=== PATIENT | male | born 1970 | race Caucasian/White ===

== ENCOUNTER 2023-10-31 03:37 | Inpatient (IN) ==
[2023-10-31 05:16] LABS: Albumin Globulin Ratio 0.6 (0.9-2); Albumin Level 2.7 gm/dl (3.4-5.0); BUN Creatinine Ratio 10.6 (10-20); Basophils # (auto) 0.09 K/uL (0.00-0.20); Basophils % (auto) 1.8 %; Bilirubin,Total 6.4 mg/dl (0.2-1.0); Calcium 8.1 mg/dl (8.6-10.3); Creatinine Clr Calc Pharmacy 214.3 ml/min; Eosinophils # (auto) 0.07 K/uL (0.00-0.50); Eosinophils % (auto) 1.4 %; Est GFR (African American) 146.1 ml/min; Globulin 4.9 gm/dl (2.5-4.0); Hematocrit (blood only) 33.6 % (42.0-52.0); Hemoglobin 11.3 g/dl (14.0-18.0); Immature Granulocytes # (auto) 0.02 K/uL (0.01-0.20); Immature Granulocytes % (auto) 0.4 %; Lymphocytes # (auto) 1.09 K/uL (1.20-3.40); Lymphocytes % (auto) 21.5 %; Mean Corpuscular Hemoglobin 33.7 pg (25.0-34.0); Mean Corpuscular Hgb Conc 33.6 g/dL (32.0-36.0); Mean Corpuscular Volume 100.3 fL (80.0-100.0); Mean Platelet Volume 9.5 fL (9.4-12.4); Monocytes # (auto) 0.87 K/uL (0.11-0.59); Monocytes % (auto) 17.1 %; Neutrophils # (auto) 2.94 K/uL (1.40-6.50); Neutrophils % (auto) 57.8 %; Platelet Count 92 K/uL (130-400); Potassium 3.4 mmol/L (3.5-5.1); RDW Coefficient of Variation 15.6 % (11.5-14.5); RDW Standard Deviation 57.8 fL (36.4-46.3); Red Blood Count 3.35 M/uL (4.70-6.10); Total Protein 7.6 gm/dl (6.0-8.3); White Blood Count 5.08 K/ul (4.8-10.8)
[2023-10-31 05:22] LABS: Troponin I High Sensitivity 28.3 pg/ml (0-20)
[2023-10-31] MEDS ORDERED: SODIUM CHLORIDE 0.9% 500 ML IV ONE (05:24)
--- NOTE | 2023-10-31 05:53 | Emergency Department Note ---
Impression & Plan Elevated troponin, Left-sided chest pain, Acute hyponatremia, Thrombocytopenia Admit to the [facility] ED Provider Note NAME: MICHEAL DAN AGE: 52 SEX: Male INFORMANT: Patient ED PROVIDER(S): Galilea Carey DO CHIEF COMPLAINT: Left-sided chest pain and left arm pain PLAN: Disposition: Admit to the [facility] MEDICAL DECISION MAKING: This is a 52-year-old male patient who presents to the emergency department complaining of left-sided chest pain and left arm discomfort. The patient had worked more than 15 hours today and was unable to sleep tonight because he could feel his heartbeat. He then developed a left-sided chest discomfort that radiated to his left arm which prompted him to come to the emergency department. Patient does have a long history of alcohol abuse. In fact, he was seen here in the hospital a couple months ago and diagnosed with alcoholic hepatitis and pancytopenia but refused admission and signed out AMA. Today, the patient has an elevated troponin with a normal-appearing EKG. Alcohol level is 22.7 and he has a resting tremor and appears to possibly be suffering some alcohol withdrawal. Other laboratory studies reveal thrombocytopenia with a platelet count of 92. Anemia with a hemoglobin of 11.3. Sodium is low at 132. Potassium is low at 3.4. Renal function is normal. Total bilirubin is significantly elevated at 6.4. AST is 79. I reviewed all these findings with the patient and his . The patient is willing to stay for admission to the hospital for further inpatient medical care. 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 Triage Nursing notes: Reviewed and agree with them. Vital Signs: reviewed and remarkable for hypertension Additional History obtained from: The patient's is at the bedside Chronic Medical/Social Conditions affecting care: Alcoholism Differential Diagnosis: STEMI, NSTEMI, GERD, aortic dissection, hepatitis, cirrhosis, alcoholism Diagnostics, independently interpreted by me: ECG: Sinus tachycardia at [address] segment elevation or signs of ischemia. There is no ectopy. QTc was 482 ms Cardiac Monitoring: Sinus tachycardia at 102 Imaging studies: Cardiomegaly with no acute pulmonary infiltrates or pleural effusions as per my independent interpretation HPI: 52 year old Male arrives for evaluation of left-sided chest discomfort and left arm pain. Patient explains that he works 15 hours today and felt as if he could not sleep tonight. He could feel his heartbeat in his chest and then developed some left-sided chest discomfort and left arm pain. Patient then began to notice some pressure into the left side of his neck PAST MEDICAL HISTORY: Alcohol abuse, previously diagnosed problem with his liver when he was seen here in the fall SOCIAL HISTORY: Works for a [employer], drinks alcohol regularly HOME MEDICATIONS: None ALLERGIES: None VITALS: See Below PHYSICAL EXAMINATION: HEENT: Head - normocephalic and atraumatic. Pupils are equal, round, and reactive to light. Extraocular eye muscles are intact, and sclera are icteric. Nose - moist nasal mucosa without discharge. Mouth - moist buccal mucosa. Oropharynx is nonerythematous and there is no tonsillar exudate or edema noted. Neck: Supple; no JVD, nuchal rigidity, cervical lymphadenopathy, or auscultated bruits. Heart: Tachycardic rate and regular rhythm there is a normal S1 and S2 with no murmurs, clicks, or gallops appreciated. Lungs: Clear to auscultation bilaterally with no wheezes, rales, or rhonchi. Abdomen: Soft, completely nontender, nondistended, with good bowel sounds. There are no palpable pulsatile masses or hepatosplenomegaly. There is no guarding, rigidity, or rebound noted. Extremities: No evidence of cyanosis, clubbing, or edema. There are easily palpable peripheral pulses. Skin: warm and dry with good turgor and no rashes. Neuro: The patient has an obvious resting tremor that is worse with intention. Emergency department course: The patient was evaluated in room A-10. Complete history and physical was performed. A twelve-lead EKG was obtained as described above. An order was placed for continuous cardiac monitoring. The patient was in a sinus tachycardia at a rate of 102. Laboratory studies were drawn as above. I reviewed the results with the patient and his and he is agreeable for admission to the hospital. Past Med/Surg History Social History Smoking Status: Unknown if ever smoked Hx Alcohol Use: Yes Preferred Language: Slovak Communication Ability: Effective Dye Maker Required: No Current Living Situation: Spouse Feels Safe at Home: Yes Allergies Allergies Allergy/AdvReac Type Severity Reaction Status Date / Time No Known Allergies Allergy Unverified 08/02/23 13:36 Home Meds Home Medications Medication Instructions Recorded Confirmed No Known Home Medications 08/02/23 10/31/23 Results & Data (ED) Vital Signs Vital Signs - 24 hr 10/31/23 03:41 10/31/23 03:56 10/31/23 06:17 Temperature 37.3 C Temperature Source Temporal Artery Scan Pulse Rate 110 H 102 H Pulse Rate [Finger] 104 H Respiratory Rate 18 18 Respiratory Effort / Characteristics Non-Labored Spontaneous Non-Labored Respiratory Depth Normal Normal Blood Pressure 155/86 H Blood Pressure [Right Arm] 159/94 H Blood Pressure Mean 109 Blood Pressure Mean [Right Arm] 115 Pulse Oximetry 95 Oxygen Delivery Method Room Air Sepsis Recent Fever Within 48 Hours No Sepsis New/Unexplained Change in Mental Status No Sepsis Action Taken by Nursing No Action Required Laboratory Data 10/31/23 03:56 10/31/23 03:56 Lab Results 10/31/23 10/31/23 Range/Units 03:56 07:22 WBC 5.08 (4.8-10.8) K/ul RBC 3.35 L (4.70-6.10) M/uL Hgb 11.3 L (14.0-18.0) g/dl Hct 33.6 L (42.0-52.0) % MCV 100.3 H (80.0-100.0) fL MCH 33.7 (25.0-34.0) pg MCHC 33.6 (32.0-36.0) g/dL RDW Std Deviation 57.8 H (36.4-46.3) fL RDW Coeff of Lorie 15.6 H (11.5-14.5) % Plt Count 92 L (130-400) K/uL MPV 9.5 (9.4-12.4) fL Immature Gran % (Auto) 0.4 % Neut % (Auto) 57.8 % Lymph % (Auto) 21.5 % [place] % (Auto) 17.1 % Eos % (Auto) 1.4 % Baso % (Auto) 1.8 % Reticulocyte % (Auto) 1.91 (0.50-2.00) % Neut # (Auto) 2.94 (1.40-6.50) K/uL Lymph # (Auto) 1.09 L (1.20-3.40) K/uL [place] # (Auto) 0.87 H (0.11-0.59) K/uL Eos # (Auto) 0.07 (0.00-0.50) K/uL Baso # (Auto) 0.09 (0.00-0.20) K/uL Reticulocyte # 0.060 (0.020-0.100) 10^6/uL Immature Gran # (Auto) 0.02 (0.01-0.20) K/uL PT 16.2 H (9.0-12.0) Seconds INR 1.5 H (0.9-1.1) APTT 35 H (21-31) Seconds PTT Ratio 1.2 Sodium 132 L (136-145) mmol/L Potassium 3.4 L (3.5-5.1) mmol/L Chloride 100 (98-107) mmol/L Carbon Dioxide 23 (21-32) mmol/L Anion Gap 9 (3-11) BUN 5 L (6-23) mg/dl Creatinine 0.47 L (0.6-1.4) mg/dl Est Cr Clr Drug Dosing 214.3 ml/min Est GFR ( Amer) 146.1 ml/min Est GFR (Non-Af Amer) 126.0 ml/min BUN/Creatinine Ratio 10.6 (10-20) Glucose 110 H (70-99(Fasting)) mg/dl Estimat Average Glucose 71 mg/dl Hemoglobin A1c 4.1 L (4.5-5.6) % Osmolality 286 (280-300) mOsm/kg Calcium 8.1 L (8.6-10.3) mg/dl Magnesium 1.5 L (1.7-2.4) mg/dl Iron 194 H (35-175) mcg/dl Transferrin 166 L (200-360) mg/dl Ferritin 99.5 (8-388) ng/ml Total Bilirubin 6.4 H (0.2-1.0) mg/dl AST 79 H (13-39) U/L ALT 28 (7-52) U/L Alkaline Phosphatase 132 H (34-104) U/L Troponin I High Sens 28.3 H 28.8 H (0-20) pg/ml Total Protein 7.6 (6.0-8.3) gm/dl Albumin 2.7 L (3.4-5.0) gm/dl Globulin 4.9 H (2.5-4.0) gm/dl Albumin/Globulin Ratio 0.6 L (0.9-2) Triglycerides 106 (0-150) mg/dl Cholesterol TNP LDL Cholesterol, Calc TNP VLDL Cholesterol, Calc 21 (0-30) mg/dl HDL Cholesterol 27 mg/dl Cholesterol/HDL Ratio TNP Lipase 43 (11-82) U/L Vitamin B12 1045 H (180-914) pg/ml Folate 9.68 (>5.38) ng/ml TSH 2.471 (0.300-4.500) uIu/ml Ethyl Alcohol mg/dL 22.7 H (<10.0) mg/dl Miscellaneous Test Cancelled Miscellaneous Test 2 Cancelled Administered Medications Folic Acid (Folic Acid 1 Mg Tab) 1 mg PO [facility] Stop: 11/30/23 08:59 Last Admin: 10/31/23 12:02 Dose: 1 mg Documented By: SOULEYMANE Insulin Aspart (Insulin Aspart Per Unit Charge) 0 units SC [facility] Stop: 11/30/23 09:52 Last Admin: 10/31/23 20:51 Dose: Not Given Documented By: Admin: 10/31/23 18:03 Dose: Not Given Documented By: Admin: 10/31/23 12:16 Dose: Not Given Documented By: Admin: 10/31/23 12:15 Dose: Not Given Documented By: SOULEYMANE Multivitamins (Multivitamin Tab) 1 tab PO [facility] Stop: 11/30/23 08:59 Last Admin: 10/31/23 12:01 Dose: 1 tab Documented By: SOULEYMANE Discontinued Medications Aspirin (Aspirin 81 Mg Ectab) 81 mg PO NOW [facility] Stop: 10/31/23 07:26 Last Admin: 10/31/23 07:40 Dose: 81 mg Documented By: DIANNE Gabapentin (Gabapentin 600 Mg Tab) 1,200 mg PO NOW STA Stop: 10/31/23 07:26 Last Admin: 10/31/23 07:40 Dose: 1,200 mg Documented By: DIANNE Gabapentin (Gabapentin 600 Mg Tab) 600 mg PO Q6H [facility] Stop: 10/31/23 19:46 Last Admin: 10/31/23 20:33 Dose: 600 mg Documented By: Admin: 10/31/23 13:51 Dose: 600 mg Documented By: SOULEYMANE Sodium Chloride (Nss) 500 mls @ 999 mls/hr IV .Q31M ONE Stop: 10/31/23 05:54 Last Infusion: 10/31/23 06:52 Dose: Infused Documented By: Admin: 10/31/23 06:11 Dose: 999 mls/hr Documented By: RUPINDER Thiamine HCl 100 mg/ Syringe 10 mls @ 2 mls/min IV NOW STA Stop: 10/31/23 06:25 Last Admin: 10/31/23 07:29 Dose: 2 mls/min Documented By: DIANNE Magnesium Sulfate/Dextrose (Magnesium Sulfate / D5w) 1 gm in 100 mls @ 50 mls/hr IV Q2H [facility] Stop: 10/31/23 11:44 Last Infusion: 10/31/23 16:45 Dose: Infused Documented By: Admin: 10/31/23 12:01 Dose: 50 mls/hr Documented By: Infusion: 10/31/23 12:01 Dose: Infused Documented By: Admin: 10/31/23 10:27 Dose: 50 mls/hr Documented By: SOULEYMANE Lorazepam (Lorazepam 1 Mg/1 Ml Syr Ed Inj Use) 1 mg IV NOW STA Stop: 10/31/23 07:32 Last Admin: 10/31/23 07:40 Dose: 1 mg Documented By: DIANNE Losartan Potassium (Losartan Potassium 25 Mg Tab) 25 mg PO NOW STA Stop: 10/31/23 07:34 Last Admin: 10/31/23 10:28 Dose: 25 mg Documented By: SOULEYMANE Losartan Potassium (Losartan Potassium 25 Mg Tab) 25 mg PO NOW STA Stop: 10/31/23 19:21 Last Admin: 10/31/23 19:43 Dose: 25 mg Documented By: JOHN Nitroglycerin (Nitroglycerin Sl 0.4 Mg/Tab Tab) 0.4 mg SL NOW STA Stop: 10/31/23 07:25 Last Admin: 10/31/23 07:28 Dose: 0.4 mg Documented By: DIANNE Potassium Chloride (Potassium Chloride Crtab 20 Meq Tabcr) 40 meq PO NOW STA Stop: 10/31/23 06:22 Last Admin: 10/31/23 06:35 Dose: 40 meq Documented By: Discharge Plan Visit Data Chief Complaint: TIA Symptoms Stated Complaint: CHEST PAIN, LEFT SIDE NUMB ED Provider: Galilea Carey Discharge Problem: Elevated troponin, Left-sided chest pain, Acute hyponatremia, Thrombocytopenia Patient Disposition: Admitted As Inpatient Discharge Instructions Interventions: ED Discharge Assessment Last Done: 10/31/23 07:57
[2023-10-31] MEDS ORDERED: POTASSIUM CHLORIDE CRTAB 20 MEQ TABCR PO STA (06:21)
[2023-10-31] MEDS ORDERED: THIAMINE HCL 100 MG in SYRINGE 9 ML IV STA (06:21)
--- NOTE | 2023-10-31 06:43 | History & Physical Report ---
Date of Service October 31, 2023 Assessment & Plan (1) Chest pain: Plan: Chest pain radiating to the left upper extremity With troponin elevation Possible ACS given patient risk factors for ischemic heart disease hypertension, elevated, patient off old Hyzaar Rx since 2019 following previous PCP advice as per patient hyperlipidemia, off prior Crestor Rx DM 2 diet-controlled, unknown control, off prior Metformin Rx Chronic hyponatremia possibly from cirrhosis/alcohol abuse cirrhosis likely secondary to alcohol abuse chronic anemia, chronic thrombocytopenia, coagulopathy secondary to cirrhosis Alcoholic hepatitis, poor prognosis with computed Maddrey's DF score of 32.6 points Hypokalemia, hypomagnesemia alcohol abuse, patient currently exhibiting signs of alcohol withdrawal with note of rest tremors past tobacco abuse PCU Aspirin for CAD prevention until ACS ruled out Nitro trial Follow troponin, initiate beta-yolanda and IV heparin if with next draw with significant elevation Restart home losartan Rx for BP control TTE, Cardiology consult Re: Chest pain with troponin elevation N.p.o. until patient seen by cardiology in anticipation of ischemic workup Update lipid profile and hemoglobin A1c Hyponatremia workup Anemia workup GI consult re: alcoholic hepatitis, cirrhosis workup RICHARD S, DT precautions Replace electrolytes ISS BG goal 1 10-1 40 DVT prophylaxis. SCDs if patient not to be started on IV heparin given thrombocytopenia Full code Patient requesting updates from providers. Ms. Candace Yates, contact #[phone]. Text document was generated using [employer] voice recognition software. It may contain grammatical or spelling errors. Kindly contact undersigned for clarification of any documentation item in question. History of Present Illness Chief Complaint: Chest pain Primary Care Provider: Dr. He (Patient has not met him.) History obtained from patient, family, and records. Medical history significant for hypertension, hyperlipidemia, DM 2 diet- controlled, cirrhosis, chronic anemia, chronic thrombocytopenia, alcohol abuse, past tobacco abuse. Patient claims he was told told by previous [facility] PCP in 2019 that he "could stop blood pressure, cholesterol and DM meds because he did not need them after losing significant weight." Last [facility] ER visit July 2023 abdominal distention and bilateral leg swelling attributed to CHF. Patient noted to be anemic, thrombocytopenic, and hyponatremic on blood work. Cirrhosis and portal hypertension noted on abdominal imaging. Patient declined admission. Jose G Paniagua PCP's office later recommended outpatient Hepatology evaluation. Patient scheduled to see specialist January 2024. Abdominal distention and leg swelling improved at home without medications as per patient. Patient experienced achy substernal pain at home yesterday while at rest going to the left arm. Some shortness of breath. Nonpruritic, no cough symptoms. May have had a transient episode last month. No headache, no unusual abdominal pain. Denies overt bleeding symptoms. Worsening discomfort few hours ago at work. Patient brought to ER by . 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 Allergies Allergy/AdvReac Type Severity Reaction Status Date / Time No Known Allergies Allergy Unverified 08/02/23 13:36 Home Medications Medication Instructions Recorded Confirmed Type No Known Home Medications 08/02/23 10/31/23 History Past Med/Surg History Social History Smoking Status: Unknown if ever smoked Hx Alcohol Use: Yes Preferred Language: Khmer Communication Ability: Effective [place] [employer] Required: No Current Living Situation: Spouse Feels Safe at Home: Yes Review of Systems Review of Systems: As per HPI, all other systems reviewed and negative Physical Exam Physical Exam: GENERAL: Slightly uncomfortable, tremulous, obese, no respiratory distress SKIN: Pallor, warm HEENT: Pale palpebral conjunctivae, no ptosis, dry buccal mucosa NECK : Supple, no tenderness CHEST : CTA, no tenderness HEART : Tachycardic, no obvious murmurs ABDOMEN: Some distention, nontender RECTAL : Intact sphincter, brown stool (FOBT negative) EXTREMITIES : Minimal LE swelling, no LE tenderness, no other conspicuous deformities noted NEUROLOGIC : Coherent, no facial asymmetry, tremulous, no other gross focality Results & Data Results & Data Vital Signs (Past 12 Hours) Vital Signs Temp Pulse Pulse Resp BP BP Pulse Ox 10/31/23 06:17 104 H 18 159/94 H 10/31/23 03:56 102 H 10/31/23 03:41 37.3 C 110 H 18 155/86 H 95 O2 Del Method 10/31/23 06:17 10/31/23 03:56 10/31/23 03:41 Room Air Laboratory Results Laboratory Results WBC 5.08 K/ul (4.8-10.8) 10/31/23 03:56 RBC 3.35 M/uL (4.70-6.10) L 10/31/23 03:56 Hgb 11.3 g/dl (14.0-18.0) L 10/31/23 03:56 Hct 33.6 % (42.0-52.0) L 10/31/23 03:56 MCV 100.3 fL (80.0-100.0) H 10/31/23 03:56 MCH 33.7 pg (25.0-34.0) 10/31/23 03:56 MCHC 33.6 g/dL (32.0-36.0) 10/31/23 03:56 RDW Std Deviation 57.8 fL (36.4-46.3) H 10/31/23 03:56 RDW Coeff of Lorie 15.6 % (11.5-14.5) H 10/31/23 03:56 Plt Count 92 K/uL (130-400) L 10/31/23 03:56 MPV 9.5 fL (9.4-12.4) 10/31/23 03:56 Immature Gran % (Auto) 0.4 % 10/31/23 03:56 Neut % (Auto) 57.8 % 10/31/23 03:56 Lymph % (Auto) 21.5 % 10/31/23 03:56 [place] % (Auto) 17.1 % 10/31/23 03:56 Eos % (Auto) 1.4 % 10/31/23 03:56 Baso % (Auto) 1.8 % 10/31/23 03:56 Neut # (Auto) 2.94 K/uL (1.40-6.50) 10/31/23 03:56 Lymph # (Auto) 1.09 K/uL (1.20-3.40) L 10/31/23 03:56 [place] # (Auto) 0.87 K/uL (0.11-0.59) H 10/31/23 03:56 Eos # (Auto) 0.07 K/uL (0.00-0.50) 10/31/23 03:56 Baso # (Auto) 0.09 K/uL (0.00-0.20) 10/31/23 03:56 Immature Gran # (Auto) 0.02 K/uL (0.01-0.20) 10/31/23 03:56 Sodium 132 mmol/L (136-145) L 10/31/23 03:56 Potassium 3.4 mmol/L (3.5-5.1) L 10/31/23 03:56 Chloride 100 mmol/L (98-107) 10/31/23 03:56 Carbon Dioxide 23 mmol/L (21-32) 10/31/23 03:56 Anion Gap 9 (3-11) 10/31/23 03:56 BUN 5 mg/dl (6-23) L 10/31/23 03:56 Creatinine 0.47 mg/dl (0.6-1.4) L 10/31/23 03:56 Est Cr Clr Drug Dosing 214.3 ml/min 10/31/23 03:56 Est GFR ( Amer) 146.1 ml/min 10/31/23 03:56 Est GFR (Non-Af Amer) 126.0 ml/min 10/31/23 03:56 BUN/Creatinine Ratio 10.6 (10-20) 10/31/23 03:56 Glucose 110 mg/dl (70-99(Fasting)) H 10/31/23 03:56 Calcium 8.1 mg/dl (8.6-10.3) L 10/31/23 03:56 Total Bilirubin 6.4 mg/dl (0.2-1.0) H 10/31/23 03:56 AST 79 U/L (13-39) H 10/31/23 03:56 ALT 28 U/L (7-52) 10/31/23 03:56 Alkaline Phosphatase 132 U/L (34-104) H 10/31/23 03:56 Troponin I High Sens 28.3 pg/ml (0-20) H 10/31/23 03:56 Total Protein 7.6 gm/dl (6.0-8.3) 10/31/23 03:56 Albumin 2.7 gm/dl (3.4-5.0) L 10/31/23 03:56 Globulin 4.9 gm/dl (2.5-4.0) H 10/31/23 03:56 Albumin/Globulin Ratio 0.6 (0.9-2) L 10/31/23 03:56 Lipase 43 U/L (11-82) 10/31/23 03:56 Ethyl Alcohol mg/dL 22.7 mg/dl (<10.0) H 10/31/23 03:56 Diagnostic Findings Chest x-ray as per my interpretation, cardiomegaly, atelectasis EKG as per my interpretation : Rate 110, sinus tachycardia, normal axis, nonspecific T wave abnormalities
[2023-10-31 07:07] LABS: Reticulocyte % 1.91 % (0.50-2.00)
[2023-10-31 07:23] LABS: Estimated Average Glucose 71 mg/dl; Hemoglobin A1C 4.1 % (4.5-5.6)
[2023-10-31] MEDS ORDERED: NITROGLYCERIN SL 0.4 MG/TAB TAB SL STA (07:24)
[2023-10-31 07:25] LABS: INR 1.5 (0.9-1.1); Partial Thromboplastin Ratio 1.2; Partial Thromboplastin Time 35 Seconds (21-31); Prothrombin Time 16.2 Seconds (9.0-12.0)
[2023-10-31] MEDS ORDERED: LORazepam 1 MG in SYRINGE 0.5 ML IV STA (07:25)
[2023-10-31] MEDS ORDERED: GABAPENTIN 600 MG TAB PO STA (07:25)
[2023-10-31] MEDS ORDERED: ASPIRIN 81 MG ECTAB PO STA (07:25)
[2023-10-31 07:27] LABS: Magnesium 1.5 mg/dl (1.7-2.4)
[2023-10-31] MEDS ORDERED: Ativan IV Alcohol Withdrawal--Active Protocol IV PRN (07:31)
[2023-10-31] MEDS ORDERED: ACETAMINOPHEN 500 MG TAB PO PRN (07:31)
[2023-10-31] MEDS ORDERED: LORazepam 1 MG in SYRINGE 0.5 ML IV PRN (07:31)
[2023-10-31] MEDS ORDERED: MoRPHine SULFATE 4 MG/ML 1 ML CARP\\VIAL IV PRN (07:31)
[2023-10-31] MEDS ORDERED: GABAPENTIN 1200MG ALCOHOL WITHDRAWAL LOAD PO STA (07:31)
[2023-10-31] MEDS ORDERED: oxyCODONE HCL IR 5 MG TAB (IMMEDIATE RELEASE) PO PRN (07:31)
[2023-10-31] MEDS ORDERED: LORazepam 2 MG in SYRINGE 1 ML IV PRN (07:31)
[2023-10-31] MEDS ORDERED: LORazepam 3 MG in SYRINGE 1.5 ML IV PRN (07:31)
[2023-10-31] MEDS ORDERED: LORazepam 1 MG/1 ML SYR ED Inj Use IV STA (07:31)
[2023-10-31] MEDS ORDERED: LOSARTAN POTASSIUM 25 MG TAB PO STA ×2 (07:33→19:20)
[2023-10-31 07:41] LABS: Thyroid Stimulating Hormone 2.471 uIu/ml (0.300-4.500)
[2023-10-31 07:47] LABS: Ferritin 99.5 ng/ml (8-388)
[2023-10-31 07:50] LABS: Folate (Folic Acid),Ser orPlas 9.68 ng/ml (>5.38)
[2023-10-31] MEDS ORDERED: ENOXAPARIN INJ 40 MG/0.4 ML SYR SQ SCH (09:00)
--- NOTE | 2023-10-31 09:05 | Cardiology Consultation ---
Date of Consultation October 31, 2023 Assessment & Plan (1) Chest pain: (2) Elevated troponin: (3) SOB (shortness of breath): (4) HTN, goal below 130/80: (5) Alcohol abuse: Plan IMPRESSION: 52-year-old male with no known prior cardiac history presented to [facility] emergency department due to exertional chest pain and shortness of breath. Former heavy tobacco user and ongoing daily alcohol abuse with possible cirrhosis. EKG without acute ST segment changes Echocardiogram with a preserved LV systolic function, no wall motion abnormalities or significant valvular disease. Thankfully, no evidence of alcohol related cardiomyopathy. High-sensitivity troponins are mildly elevated in the mid 20s. Elevated ASCVD risk. CAD risk factors include: Hypertension, prediabetes, former heavy tobacco use, ongoing heavy alcohol abuse, and obesity. PLAN: Chest pain/SOB: -Exertional chest pain, SOB, and nausea. -Consider proceeding with a dobutamine stress echo to rule out ischemic cause to his symptoms, patient believes that he will be unable to perform and exercise stress echo due to symptoms/dyspnea-- will discuss with Dr. Ramesh, can likely complete on Thursday. Hypertension: -Uncontrolled on admission. -Agree with starting Losartan 25 mg daily, titrate as needed. Alcohol abuse: -Electrolyte derangement likely in the setting of chronic alcohol abuse-- correct potassium to a goal of 4.0 and mag of 2.0. -Thrombocytopenia also noted. -Recommend workup for possible alcohol related cirrhosis--will defer to primary team. -Alcohol withdrawal protocol initiated. (Last drink this am around 0200) Case discussed with Dr. Ramesh I spent a total of 40 minutes on the date of service in preparation, delivery, and documentation of the care provided to the patient excluding any time spent in the performance of separately billed services. PUNEET Ortiz Department of Cardiology, [facility] This chart was completed in part utilizing Speech Voice Recognition Software. Grammatical errors, random word insertions, pronoun errors, and incomplete sentences are an occasional consequence of this system due to software limitations, ambient noise, and hardware issues. Any formal questions or concerns about the content, text, or information contained within the body of this dictation should be directly addressed to the provider for clarification. Supervising Physician Co-Signing Physician Notes Attending attestation: I have reviewed the advanced practitioner's documentation, and agree with, and take responsibility for the plan of care. Subjective: During my assessment at 12:30 PM on 10/31/2023. Patient states feeling much better compared to yesterday. No chest discomfort at present. Telemetry reveals sinus rhythm in the 80s. Exam: Cardiovascular: Irregular rhythm, no murmurs, no lower extremity edema Abdomen with findings consistent with ascites Data: EKG performed 10/31/2023 at 3:49 AM and interpret independently: Sinus, normal ST segments. Mild, flat troponin elevation x 2, repeat level to be drawn at 1330. Echocardiogram with normal biventricular systolic function, normal LV wall motion, no significant valvular disease, LVEF in the range of 60 to 65% Impression/ Plan: Chest pain. Occurred after having a lunch that included spicy chicken wings however patient was also performing physical labor. -Advance diet for now. Agree with plan for electrolyte replacement. Agree with aspirin, losartan 25 mg daily , fasting lipid panel. -ETOH withdrawal prophylaxis. -Will likely proceed with either exercise or pharmacologic stress testing as hospitalization develops but not today. I spent a total of 20 minutes coordinating, documenting, and providing care for this patient excluding time spent in the performance of separately billed services or time spent by another provider. Oc Ramesh, History of Present Illness Reason for Consultation: Chest pain Requesting Physician: Jose G mendez Attending Physician: Jorge Jnoes MD History of Present Illness 52-year-old male who presented to [facility] emergency department this morning due to about 12 hours of exertional chest pain and shortness of breath. 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 Initially felt like it was reflux as he admitted to eating chicken wings with jalapeno popper for lunch. Symptoms persist aggressively got worse and pain started to radiate into the left arm. He became dyspneic and slightly nauseated. Stopping and resting improved his symptoms. He got home from work around 01:30 this morning, drank a beer, and tried to lay down. Symptoms persisted and he presented to the emergency department--was given aspirin and sublingual nitroglycerin which relieved his discomfort. EKG showed sinus tachycardia with a rate of 108 bpm. Echocardiogram showed a preserved LV systolic function of 60 to 65% without wall motion abnormalities. There were no significant valvular disease. High-sensitivity troponin mildly elevated (28.3>>28.8) Other blood work notable for mild anemia with a hemoglobin of 11.3, sodium level low at 132, low potassium at 3.4, magnesium low at 1.5, BNP mildly elevated at 248, ethyl alcohol level 22.7 (elevated) Upon entrance into the room patient sleeping in bed. Woke easily. Currently chest pain free. No return of shortness of breath. Denies palpitations or lightheadedness. Has chronic lower extremity edema as well as a distended abdomen--patient is currently being in the process of being worked up for cirrhosis. He is a daily alcohol user, notes that he " drinks too much"--about 10-12 beers per day with an occasional glass of wine. Last drink this morning between 1 and 2 AM. He is a former smoker, quit about 15 years ago and was smoking up to 3 packs/day. Denies previous myocardial infarction, cardiac catheterization, coronary artery bypass grafting, a history of congestive heart failure, valvular disease or rheumatic fever, or history of arrhythmia. Past medical history: Hypertension Hyperlipidemia Type 2 diabetes Cirrhosis and portal hypertension with alcohol abuse Chronic anemia Chronic thrombocytopenia Former tobacco use, up to 3 packs/day, quit approximately 15 years ago Allergies Allergy/AdvReac Type Severity Reaction Status Date / Time No Known Allergies Allergy Unverified 08/02/23 13:36 Home Medications Medication Instructions Recorded Confirmed Type No Known Home Medications 08/02/23 10/31/23 History Patient History Social History Smoking Status: Unknown if ever smoked Hx Alcohol Use: Yes Preferred Language: Bulgarian Communication Ability: Effective Top Lift Trimmer Required: No Current Living Situation: Spouse Feels Safe at Home: Yes Review of Systems Review of Systems: All systems reviewed & are unremarkable except as noted in HPI & below Physical Exam Constitutional: well developed and well nourished; no acute distress Eyes: PERRL; sclerae not anicteric (Yellowing of the sclera with red streaks) Neck: normal visual inspection and trachea midline Respiratory: normal respiratory effort, lungs clear to auscultation no cough Cardiovascular: Rate/Rhythm: regular rate and regular rhythm Heart Sounds: normal S1 and normal S2 Vessels: + JVD Extremities: + edema (+2 BLLE pitting edema) Gastrointestinal (Abdomen): Inspection/Auscultation: + abdomen distended Percussion/Palpation: + abdomen tender Musculoskeletal: Shoulder: + skin erythema (BL lower extremities ) Skin: no rashes, warm and dry Psychiatric: Orientation: alert and oriented x 3 Results & Data Vital Signs (Past 12 Hours) Vital Signs Temp Pulse Pulse Resp BP BP Pulse Ox 10/31/23 08:24 101 H 10/31/23 08:24 101 H 21 138/83 10/31/23 07:32 110 H 10/31/23 06:17 104 H 18 159/94 H 10/31/23 03:56 102 H 10/31/23 03:41 37.3 C 110 H 18 155/86 H 95 O2 Del Method 10/31/23 08:24 10/31/23 08:24 10/31/23 07:32 10/31/23 06:17 10/31/23 03:56 10/31/23 03:41 Room Air Laboratory Results Cardiac Enzymes 10/31/23 10/31/23 Range/Units 03:56 07:22 AST 79 H (13-39) U/L Troponin I High Sens 28.3 H 28.8 H (0-20) pg/ml Coagulation 10/31/23 Range/Units 03:56 PT 16.2 H (9.0-12.0) Seconds APTT 35 H (21-31) Seconds CBC 10/31/23 Range/Units 03:56 WBC 5.08 (4.8-10.8) K/ul RBC 3.35 L (4.70-6.10) M/uL Hgb 11.3 L (14.0-18.0) g/dl Hct 33.6 L (42.0-52.0) % Plt Count 92 L (130-400) K/uL Neut # (Auto) 2.94 (1.40-6.50) K/uL Lymph # (Auto) 1.09 L (1.20-3.40) K/uL [place] # (Auto) 0.87 H (0.11-0.59) K/uL Eos # (Auto) 0.07 (0.00-0.50) K/uL Baso # (Auto) 0.09 (0.00-0.20) K/uL Comprehensive Metabolic Panel 10/31/23 Range/Units 03:56 Sodium 132 L (136-145) mmol/L Potassium 3.4 L (3.5-5.1) mmol/L Chloride 100 (98-107) mmol/L Carbon Dioxide 23 (21-32) mmol/L BUN 5 L (6-23) mg/dl Creatinine 0.47 L (0.6-1.4) mg/dl Glucose 110 H (70-99(Fasting)) mg/dl Calcium 8.1 L (8.6-10.3) mg/dl AST 79 H (13-39) U/L ALT 28 (7-52) U/L Alkaline Phosphatase 132 H (34-104) U/L Total Protein 7.6 (6.0-8.3) gm/dl Albumin 2.7 L (3.4-5.0) gm/dl Intake and Output 10/30/23 10/31/23 10/31/23 22:59 06:59 14:59 Intake Total 500 / 500 Balance 500 / 500 Intake: IV 500 / 500 Sodium Chloride 0.9% 500 ml @ 500 / 500 999 mls/hr IV .Q31M ONE Rx#: [id number] Other: Weight 101.3 kg 101.3 kg Weight Measurement Method Chair Scale Chair Scale Patient Weight 11/01/23 06:59 Weight 101.3 kg
--- NOTE | 2023-10-31 09:29 | XRay Report ---
XR chest 1V portable CLINICAL HISTORY: Chest pain, nonspecific TECHNIQUE: Single frontal radiograph of the chest was obtained. Comparison: None available at the time of this dictation. FINDINGS: No lines and tubes are seen. The cardiomediastinal silhouette is normal. The lungs are clear. No evid ence of pleural effusion or pneumothorax. IMPRESSION: No acute chest disease. ACT 112: Negative or not required by law. Electronically signed by: Loki Summers M.D. 10/31/2023 9:28 AM
[2023-10-31] MEDS ORDERED: NITROGLYCERIN SL 0.4 MG/TAB TAB SL PRN (09:53)
[2023-10-31] MEDS ORDERED: DEXTROSE 50% 50 ML SYRINGE IV PRN (09:53)
[2023-10-31] MEDS ORDERED: GLUCAGON FOR INJ 1 MG VIAL SQ PRN (09:53)
[2023-10-31] MEDS ORDERED: CARBOHYDRATES FOR HYPOGLYCEMIA PO PRN (09:53)
[2023-10-31] MEDS ORDERED: GLUCOSE 10 TAB/TUBE PO PRN (09:53)
[2023-10-31] MEDS ORDERED: GLUCOSE 40% GEL 15 GM TUBE PO PRN (09:53)
--- NOTE | 2023-10-31 10:24 | Electrocardiogram Report ---
Test Reason : Blood Pressure : / mmHG Vent. Rate : 108 BPM Atrial Rate : 108 BPM P-R Int : 164 ms QRS Dur : 086 ms QT Int : 360 ms P-R-T Axes : 045 026 063 degrees QTc Int : 482 ms Sinus tachycardia Otherwise normal ECG When compared with ECG of 02-AUG-2023 10:55, No significant change was found Confirmed by Fortino Harrison ([id number]) on 10/31/2023 10:24:06 AM Referred By: REFERRED SELF Confirmed By:Fortino Harrison
[2023-10-31] MEDS: MAGNESIUM SULFATE / D5W 1 GM/100 ML BAG IV SCH ×2 (10:27→12:01)
--- NOTE | 2023-10-31 11:38 | Communication Note ---
Date of Service: October 31, 2023 Patient was seen and examined at bedside. 52-year-old male with PMH of HTN, HLD, T2DM, cirrhosis/portal hypertension, chronic anemia, chronic, cytopenia, alcohol abuse, past tobacco abuse [reports quitting 15 years ago] came in with complaint of substernal chest pain [started the evening prior to arrival] radiating to left upper extremity associated with some shortness of breath. Denies febrile illness or cough or headache or dizziness. Reports intermittent chest pain. He is being managed for the following: Chest pain rule out ACS Patient presented with chest pain radiating to LUE Elevated troponin at 28, so far flat trend, trend further troponins. EKG with sinus tachycardia. No acute ST or T changes noted. Echo with EF of 60 to 65%, left ventricular wall motion is normal, LV systolic function is normal. Cardiology on board, plan for stress test. Continue telemetry monitoring. Continue with aspirin for CAD prevention until ACS ruled out. EKG as needed for chest pain. Nitroglycerin as needed for chest pain. Beta-yolanda and IV heparin if troponin uptrending significantly. Hypertension: Patient off of old Hyzaar treatment since 2019 following previous PCP advice as per patient. Blood pressure elevated at presentation, echo with mild concentric LVH. Patient started on losartan, continue. Follow blood pressure. Alcohol abuse disorder: Patient has been drinking for many years, reports drinking about 10-12 beers every day. Denies any withdrawal seizures in the past. RICHARD S protocol. Folic acid and thiamine. Patient counseled regarding alcohol cessation, also advised regarding inpatient rehab. Patient stated that he will think about inpatient rehab. Not yet decided on it as of now. Alcoholic hepatitis: LFT elevated. Madrey's DF score of 25.7 points. GI consult, await recommendation. Electrolyte abnormalities: Monitor and replete. Other chronic medical conditions: Hyperlipidemia, off of prior Crestor treatment. LDL pending. T2DM: Diet controlled, off of prior metformin treatment. Follow-up with PCP for long-term monitoring. Chronic hyponatremia: Possibly from cirrhosis/alcohol abuse. Sodium 132 today. Will follow. Increase solute intake in diet. 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 GI consulted, await recommendation. Bicytopenia [anemia and thrombocytopenia] and elevated INR: Likely secondary to cirrhosis. Will continue to monitor. DVT prophylaxis. SCDs if patient not to be started on IV heparin given thrombocytopenia Full code Patient Ms. Candace Yates, contact #[phone]. Text document was generated using [employer] voice recognition software. It may contain grammatical or spelling errors. Kindly contact undersigned for clarification of any documentation item in question.
[2023-10-31] MEDS: MULTIVITAMIN TAB PO SCH (12:01)
[2023-10-31] MEDS: FOLIC ACID 1 MG TAB PO SCH (12:02)
[2023-10-31 12:11] LABS: HDL Cholesterol 27 mg/dl; Triglycerides 106 mg/dl (0-150); VLDL Cholesterol 21 mg/dl (0-30)
[2023-10-31] MEDS: INSULIN ASPART PER UNIT CHARGE SC SCH ×4 (12:15→20:51)
[2023-10-31 12:26] LABS: Appearance Urine Clear (Clear); Bilirubin Urine Negative (Negative); Blood Urine Trace-intact (Negative); Color Urine Yellow; Glucose Urine UA Negative (Negative); Ketones Urine 1+ (Negative); Leukocyte Esterase Urine Negative (Negative); Nitrite Urine Negative (Negative); Protein Urine Negative (Negative); Specific Gravity Urine 1.015 (1.000-1.030); Urobilinogen Urine Positive (Negative); pH Urine 8.5 (4.5-7.5)
[2023-10-31 12:33] LABS: Epithelial Cell Urine 0-5 /lpf (0-5)
[2023-10-31 12:34] LABS: Bacteria Urine Negative (Negative); WBC Urine 0-5 /hpf (0-5)
[2023-10-31 13:21] LABS: Amphetamines+Metham, Urine Neg (Neg); Barbiturates, Urine Neg (Neg); Benzodiazepine, Urine Neg (Neg); Cocaine, Urine Neg (Neg); MDMA (Ecstacy), Urine Neg (Neg); Marijuana, Urine Neg (Neg); Methadone, Urine Neg (Neg); Opiate, Urine Neg (Neg); Phencyclidine, Urine Neg (Neg)
[2023-10-31] MEDS: GABAPENTIN 600 MG TAB PO SCH ×2 (13:51→20:33)
--- NOTE | 2023-10-31 14:14 | Gastrointestinal Consultation ---
Date of Consultation October 31, 2023 Assessment & Plan (1) Alcohol abuse: (2) Cirrhosis: Plan ETOH abuse and cirrhosis: decompensated with ascites and varices. MDF is 30 at this time. MELD-na is 22. recs: strict ETOH cessation with alcohol rehab recommended monitor for etoh withdrawal, ciri protocol outpatient hepatology evaluation is recommended, [facility], will need EGD for variceal assessment as outpatient supportive care, <2g Na diet avoid NSAIDs in cirrhotic patients Thank you for allowing me to participate in the care of this patient History of Present Illness Attending Physician: Jorge Jones MD History of Present Illness 52 yo male with hx HTN, HLD, DM2, cirrhosis and portal HTN, varices, ascites here with chest pains and ETOH abuse. BAL over twice the limit this admission. He spoek to his this morning about ETOH rehab. Seen by cardiology this admission for his chest pains which radiated to his left arm and had dyspness too. Regarding his cirrhosis, etiology appears to be alcoholic, MDF currently is 30, no confusion or asterixis on exam and no active GI bleeding apparently. CBC, CMP reviewed. Allergies Allergy/AdvReac Type Severity Reaction Status Date / Time No Known Allergies Allergy Unverified 08/02/23 13:36 Home Medications Medication Instructions Recorded Confirmed Type No Known Home Medications 08/02/23 10/31/23 History Patient History Social History Smoking Status: Unknown if ever smoked Hx Alcohol Use: Yes Preferred Language: Senegalese Communication Ability: Effective Panel Edge Sealer Required: No Current Living Situation: Spouse Feels Safe at Home: Yes Review of Systems Constitutional: no fever, no chills and no weight loss Eyes: as per Subjective / HPI Ear, Nose, Mouth, Throat: as per Subjective / HPI Respiratory: no dyspnea and no dyspnea on exertion Cardiovascular: no chest pain and no palpitations Gastrointestinal: as per Subjective / HPI Musculoskeletal: no joint pain and no swelling Integumentary: no rash and no lesions Neurologic: no numbness and no paresthesia Psychiatric: no depression and no anxiety Endocrine: no fatigue Hematologic / Lymphatic: no easy bleeding and no easy bruising Physical Exam Constitutional: WD/WN, vitals as above Eyes: EOM intact bilaterally Neck: normal visual inspection Respiratory: normal respiratory effort, lungs clear to auscultation Cardiovascular: RRR, no murmur, no edema Gastrointestinal (Abdomen): Inspection/Auscultation: abdomen normal to inspection; abdomen not distended Percussion/Palpation: abdomen soft; abdomen nontender and no hepatosplenomegaly Musculoskeletal: Head/Neck/Chest: normocephalic and head atraumatic Extremities: no cyanosis Skin: no rashes, warm and dry Neurologic: moves all extremities no asterixis. Psychiatric: Orientation: alert and cooperative Affect: euthymic affect Results & Data Vital Signs (Past 12 Hours) Vital Signs Temp Pulse Pulse Resp BP BP Pulse Ox 10/31/23 13:51 92 H 18 153/95 H 97 10/31/23 12:00 95 H 18 150/92 H 95 10/31/23 10:26 94 H 18 154/91 H 97 10/31/23 08:24 101 H 10/31/23 08:24 101 H 21 138/83 10/31/23 07:32 110 H 10/31/23 06:17 104 H 18 159/94 H 10/31/23 03:56 102 H 10/31/23 03:41 37.3 C 110 H 18 155/86 H 95 O2 Del Method 10/31/23 13:51 Room Air 10/31/23 12:00 Room Air 10/31/23 10:26 Room Air 10/31/23 08:24 10/31/23 08:24 10/31/23 07:32 10/31/23 06:17 10/31/23 03:56 10/31/23 03:41 Room Air PG Care Time/CCT Total # of Minutes Spent Total Time Spent with Patient: Total time spent is greater than 50% in coordination of care (as documented) at patient's floor/unit and/or counseling patient: Coding Level of Care Code 30514 IN/OBS CONSULT LVL 3,45M Diagnoses Alcohol abuse F10.10 Cirrhosis K74.60
[2023-11-01] MEDS: GABAPENTIN 600 MG TAB PO SCH ×3 (05:12→19:21)
[2023-11-01 06:32] LABS: Basophils # (auto) 0.07 K/uL (0.00-0.20); Basophils % (auto) 1.4 %; Eosinophils # (auto) 0.18 K/uL (0.00-0.50); Eosinophils % (auto) 3.7 %; Hematocrit (blood only) 33.8 % (42.0-52.0); Immature Granulocytes # (auto) 0.01 K/uL (0.01-0.20); Immature Granulocytes % (auto) 0.2 %; Lymphocytes # (auto) 1.32 K/uL (1.20-3.40); Lymphocytes % (auto) 27.3 %; Mean Corpuscular Hgb Conc 32.5 g/dL (32.0-36.0); Mean Corpuscular Volume 101.5 fL (80.0-100.0); Mean Platelet Volume 9.8 fL (9.4-12.4); Monocytes # (auto) 0.87 K/uL (0.11-0.59); Neutrophils # (auto) 2.39 K/uL (1.40-6.50); Neutrophils % (auto) 49.4 %; Platelet Count 95 K/uL (130-400); RDW Coefficient of Variation 15.4 % (11.5-14.5); RDW Standard Deviation 57.4 fL (36.4-46.3); Red Blood Count 3.33 M/uL (4.70-6.10); White Blood Count 4.84 K/ul (4.8-10.8)
[2023-11-01 07:21] LABS: Alanine Aminotransferase 20 U/L (7-52); Albumin Globulin Ratio 0.6 (0.9-2); Albumin Level 2.4 gm/dl (3.4-5.0); Alkaline Phosphatase 108 U/L (34-104); Anion Gap 5 (3-11); Aspartate Aminotransferase 55 U/L (13-39); Bilirubin,Total 7.3 mg/dl (0.2-1.0); Blood Urea Nitrogen 7 mg/dl (6-23); Calcium 8.2 mg/dl (8.6-10.3); Carbon Dioxide 25 mmol/L (21-32); Chloride 104 mmol/L (98-107); Creatinine Clr Calc Pharmacy 180.6 ml/min; Globulin 4.3 gm/dl (2.5-4.0); Glucose 96 mg/dl (70-99(Fasting)); HDL Cholesterol 26 mg/dl; Magnesium 1.6 mg/dl (1.7-2.4); Potassium 3.9 mmol/L (3.5-5.1); Sodium 134 mmol/L (136-145); Total Protein 6.7 gm/dl (6.0-8.3); Triglycerides 101 mg/dl (0-150); VLDL Cholesterol 20 mg/dl (0-30)
[2023-11-01] MEDS: LOSARTAN POTASSIUM 50 MG TAB PO SCH (07:22)
[2023-11-01] MEDS: FOLIC ACID 1 MG TAB PO SCH (07:22)
[2023-11-01] MEDS: MULTIVITAMIN TAB PO SCH (07:22)
[2023-11-01] MEDS: THIAMINE HCL 100 MG TAB PO SCH (07:23)
[2023-11-01] MEDS: INSULIN ASPART PER UNIT CHARGE SC SCH ×4 (08:19→20:42)
[2023-11-01] MEDS: ASPIRIN 81 MG ECTAB PO SCH (08:47)
[2023-11-01] MEDS ORDERED: LOSARTAN POTASSIUM 25 MG TAB PO SCH (09:00)
[2023-11-01] MEDS: MAGNESIUM SULFATE / D5W 1 GM/100 ML BAG IV SCH ×2 (09:43→11:21)
--- NOTE | 2023-11-01 10:05 | Electrocardiogram Report ---
Test Reason : Blood Pressure : / mmHG Vent. Rate : 086 BPM Atrial Rate : 086 BPM P-R Int : 154 ms QRS Dur : 082 ms QT Int : 414 ms P-R-T Axes : 058 044 008 degrees QTc Int : 495 ms Normal sinus rhythm Prolonged QT Abnormal ECG When compared with ECG of 31-OCT-2023 03:49, No significant change was found Confirmed by Fortino Harrison ([id number]) on 11/01/2023 10:05:14 AM Referred By: REFERRED SELF Confirmed By:Fortino Harrison
--- NOTE | 2023-11-01 11:35 | Cardiology Progress Note ---
Date of Service November 01, 2023 Assessment & Plan (1) Chest pain: (2) Elevated troponin: (3) SOB (shortness of breath): (4) HTN, goal below 130/80: (5) Alcohol abuse: Plan IMPRESSION: 52-year-old male with no known prior cardiac history presented to [facility] emergency department due to exertional chest pain and shortness of breath. Former heavy tobacco user and ongoing daily alcohol abuse with possible cirrhosis. EKG without acute ST segment changes Echocardiogram with a preserved LV systolic function, no wall motion abnormalities or significant valvular disease. -BP elevated despite losartan therapy.Given h/o liver disease, HTN, and edema, start spironolactone. -Trial of ambulation . If able to ambulate, plan for exercise stress echo tomorrow . If poor ambulation status, will plan for DSE tomorrow. -Continue medication for withdrawal prophylaxis. This chart was completed in part utilizing Speech Voice Recognition Software. Grammatical errors, random word insertions, pronoun errors, and incomplete sentences are an occasional consequence of this system due to software limitations, ambient noise, and hardware issues. Any formal questions or concerns about the content, text, or information contained within the body of this dictation should be directly addressed to the provider for clarification. Admission and Anticipated Discharge Date Admission Date: October 31, 2023 Subjective Patient seen in cardiology follow-up of chest discomfort. He notes feeling well. He is receiving IV magnesium infusion but is otherwise been ambulatory. Telemetry reveals sinus rhythm in the 90s to 100s. No recurrent chest discomfort. Review of Systems Review of Systems: All systems reviewed & are unremarkable except as noted in HPI & below Physical Exam Constitutional: well developed and well nourished; no acute distress Eyes: PERRL; sclerae not anicteric (Yellowing of the sclera with red streaks) Neck: normal visual inspection and trachea midline Respiratory: normal respiratory effort, lungs clear to auscultation no cough Cardiovascular: Rate/Rhythm: regular rate and regular rhythm Heart Sounds: normal S1 and normal S2 Vessels: + JVD Extremities: + edema (+1 BLLE pitting edema) Gastrointestinal (Abdomen): Inspection/Auscultation: + abdomen distended Percussion/Palpation: + abdomen tender Musculoskeletal: Shoulder: + skin erythema (BL lower extremities ) Skin: no rashes, warm and dry Psychiatric: Orientation: alert and oriented x 3 Results & Data Vital Signs (Past 12 Hours) Vital Signs Temp Pulse Pulse Resp BP BP Pulse Ox 11/01/23 11:18 37.0 C 94 H 18 154/81 H 98 11/01/23 07:34 36.9 C 104 H 18 154/86 H 97 11/01/23 07:07 90 11/01/23 03:20 36.6 C 99 H 18 167/94 H 97 O2 Del Method 11/01/23 11:18 Room Air 11/01/23 07:34 Room Air 11/01/23 07:07 11/01/23 03:20 Room Air Laboratory Results Cardiac Enzymes 10/31/23 10/31/23 11/01/23 Range/Units 14:14 19:12 05:26 AST 55 H (13-39) U/L Troponin I High Sens 24.9 H 18.8 D (0-20) pg/ml Lipids 10/31/23 11/01/23 Range/Units 07:22 05:26 Triglycerides 106 101 (0-150) mg/dl Cholesterol TNP TNP HDL Cholesterol 27 26 mg/dl Cholesterol/HDL Ratio TNP TNP CBC 11/01/23 Range/Units 05:26 WBC 4.84 (4.8-10.8) K/ul RBC 3.33 L (4.70-6.10) M/uL Hgb 11.0 L (14.0-18.0) g/dl Hct 33.8 L (42.0-52.0) % Plt Count 95 L (130-400) K/uL Neut # (Auto) 2.39 (1.40-6.50) K/uL Lymph # (Auto) 1.32 (1.20-3.40) K/uL [place] # (Auto) 0.87 H (0.11-0.59) K/uL Eos # (Auto) 0.18 (0.00-0.50) K/uL Baso # (Auto) 0.07 (0.00-0.20) K/uL Comprehensive Metabolic Panel 11/01/23 Range/Units 05:26 Sodium 134 L (136-145) mmol/L Potassium 3.9 (3.5-5.1) mmol/L Chloride 104 (98-107) mmol/L Carbon Dioxide 25 (21-32) mmol/L BUN 7 (6-23) mg/dl Creatinine 0.54 L (0.6-1.4) mg/dl Glucose 96 (70-99(Fasting)) mg/dl Calcium 8.2 L (8.6-10.3) mg/dl AST 55 H (13-39) U/L ALT 20 (7-52) U/L Alkaline Phosphatase 108 H (34-104) U/L Total Protein 6.7 (6.0-8.3) gm/dl Albumin 2.4 L (3.4-5.0) gm/dl Intake and Output 10/31/23 11/01/23 11/01/23 22:59 06:59 14:59 Intake Total 350 / 428.333 81.667 / 81.667 Balance 350 / 428.333 81.667 / 81.667 Intake: IV 100 / 178.333 81.667 / 81.667 Magnesium Sulfate / D5w 1 gm In 100 / 178.333 81.667 / 81.667 100 ml @ 50 mls/hr IV Q2H MILADYS Rx#:[id number] Oral 250 / 250 Other: # Unmeasured Voids 1 1 Weight 94.6 kg Weight Measurement Method Built in [facility] Diagnostic Findings Repeat EKG performed 10/22/2023 revealed sinus rhythm at 86 bpm, ST segments are normal. QT interval mildly prolonged at 495 ms.
[2023-11-01] MEDS: SPIRONOLACTONE 25 MG TAB PO SCH (12:43)
--- NOTE | 2023-11-01 18:27 | Hospitalist Progress Note ---
Date of Service November 01, 2023 Assessment & Plan (1) Chest pain: Plan 52-year-old male with PMH of HTN, HLD, T2DM, cirrhosis/portal hypertension, chronic anemia, chronic, cytopenia, alcohol abuse, past tobacco abuse [reports quitting 15 years ago] came in with complaint of substernal chest pain [started the evening prior to arrival] radiating to left upper extremity associated with some shortness of breath. Denies febrile illness or cough or headache or dizziness. Reports intermittent chest pain. He is being managed for the following: Chest pain rule out ACS Patient presented with chest pain radiating to LUE Elevated troponin at 28, so far flat trend, trend further troponins. EKG with sinus tachycardia. No acute ST or T changes noted. Echo with EF of 60 to 65%, left ventricular wall motion is normal, LV systolic function is normal. Cardiology on board, plan for stress test likely shaheed. NPO midnight Continue telemetry monitoring. Continue with aspirin for CAD prevention until ACS ruled out. EKG as needed for chest pain. Nitroglycerin as needed for chest pain. Beta-yolanda and IV heparin if troponin uptrending significantly. Hypertension: Patient off of old Hyzaar treatment since 2019 following previous PCP advice as per patient. Blood pressure elevated at presentation, echo with mild concentric LVH. Patient started on losartan, continue. Follow blood pressure. Alcohol abuse disorder: Patient has been drinking for many years, reports drinking about 10-12 beers every day. Denies any withdrawal seizures in the past. RICHARD S protocol. Folic acid and thiamine. Patient counseled regarding alcohol cessation, also advised regarding inpatient rehab. Patient stated that he will think about inpatient rehab. Not yet decided on it as of now. Alcoholic hepatitis: LFT elevated. Nick's DF score of 25.7 points. GI consult, f/u GI on DC. Electrolyte abnormalities: Monitor and replete. Other chronic medical conditions: Hyperlipidemia, off of prior Crestor treatment. LDL pending/icteric plasma hence was send-out. T2DM: Diet controlled, off of prior metformin treatment. Follow-up with PCP for long-term monitoring. Chronic hyponatremia: Possibly from cirrhosis/alcohol abuse. Sodium 132 today. Will follow. Increase solute intake in diet. 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 GI consulted, await recommendation. Bicytopenia [anemia and thrombocytopenia] and elevated INR: Likely secondary to cirrhosis. Will continue to monitor. DVT prophylaxis. Hep sc Full code Patient Ms. Candace Yates, contact #[phone]. Text document was generated using [employer] voice recognition software. It may contain grammatical or spelling errors. Kindly contact undersigned for clarification of any documentation item in question. Admission and Anticipated Discharge Date Admission Date: October 31, 2023 Subjective Patient was seen and examined at bedside. Patient was lying in bed, on room air, resting comfortably, not in any acute distress. Patient denies any abdominal pain or chest pain, is ambulatory, reports eating okay and moving bowels okay. Physical Exam Physical Exam: GENERAL: NAD, room air, obese, no respiratory distress SKIN: no Pallor, warm HEENT: nl palpebral conjunctivae, no ptosis, moist buccal mucosa NECK : Supple, no tenderness CHEST : CTA, no tenderness HEART : RRR, no obvious murmurs ABDOMEN: no distention, nontender RECTAL : Intact sphincter, brown stool (FOBT negative) EXTREMITIES : Minimal LE swelling, no LE tenderness, no other conspicuous deformities noted NEUROLOGIC : Coherent, no facial asymmetry, tremulous, no other gross focality Results & Data Results & Data Vital Signs (Past 12 Hours) Vital Signs Temp Pulse Pulse Resp BP BP Pulse Ox 11/01/23 16:07 36.7 C 86 18 143/79 H 97 11/01/23 15:02 99 H 11/01/23 11:18 37.0 C 94 H 18 154/81 H 98 11/01/23 07:34 36.9 C 104 H 18 154/86 H 97 11/01/23 07:07 90 O2 Del Method 11/01/23 16:07 Room Air 11/01/23 15:02 11/01/23 11:18 Room Air 11/01/23 07:34 Room Air 11/01/23 07:07
[2023-11-01] MEDS: HEPARIN SOD 5,000 UNIT/0.5 ML VIAL SQ SCH (20:44)
[2023-11-02 06:02] LABS: Hematocrit (blood only) 32.6 % (42.0-52.0); Hemoglobin 10.8 g/dl (14.0-18.0); Mean Corpuscular Hemoglobin 33.4 pg (25.0-34.0); Mean Corpuscular Hgb Conc 33.1 g/dL (32.0-36.0); Mean Corpuscular Volume 100.9 fL (80.0-100.0); Mean Platelet Volume 9.6 fL (9.4-12.4); Platelet Count 92 K/uL (130-400); RDW Coefficient of Variation 15.2 % (11.5-14.5); RDW Standard Deviation 56.6 fL (36.4-46.3); Red Blood Count 3.23 M/uL (4.70-6.10); White Blood Count 5.38 K/ul (4.8-10.8)
[2023-11-02 06:23] LABS: BUN Creatinine Ratio 15.7 (10-20); Calcium 8.5 mg/dl (8.6-10.3); Creatinine Clr Calc Pharmacy 191.2 ml/min; Est GFR (African American) 141.2 ml/min; Est GFR (Non-African American) 121.9 ml/min; Magnesium 1.6 mg/dl (1.7-2.4); Phosphorus 4.6 mg/dl (2.5-4.9)
[2023-11-02] MEDS: FOLIC ACID 1 MG TAB PO SCH (07:39)
[2023-11-02] MEDS: THIAMINE HCL 100 MG TAB PO SCH (07:40)
[2023-11-02] MEDS: LOSARTAN POTASSIUM 50 MG TAB PO SCH (07:40)
[2023-11-02] MEDS: MULTIVITAMIN TAB PO SCH (07:40)
[2023-11-02] MEDS: ASPIRIN 81 MG ECTAB PO SCH (07:40)
[2023-11-02] MEDS: INSULIN ASPART PER UNIT CHARGE SC SCH ×2 (07:40→11:57)
[2023-11-02] MEDS: SPIRONOLACTONE 25 MG TAB PO SCH (07:40)
[2023-11-02] MEDS: HEPARIN SOD 5,000 UNIT/0.5 ML VIAL SQ SCH (07:41)
[2023-11-02] MEDS ORDERED: GABAPENTIN 600 MG TAB PO SCH (07:45)
[2023-11-02] MEDS ORDERED: FUROSEMIDE 20 MG TAB PO SCH (10:00)
[2023-11-02] MEDS ORDERED: MAGNESIUM OXIDE 400 MG TAB PO SCH (10:00)
--- NOTE | 2023-11-02 10:06 | Cardiology Progress Note ---
Date of Service November 02, 2023 Assessment & Plan (1) Chest pain: (2) HTN, goal below 130/80: (3) Alcohol abuse: (4) Cirrhosis: Plan IMPRESSION: 52-year-old male with no known prior cardiac history presented to [facility] emergency department due to exertional chest pain and shortness of breath. Former heavy tobacco user and ongoing daily alcohol abuse with possible cirrhosis. Patient underwent exercise stress echocardiogram this morning 11/02/2023 which he tolerated well with no EKG or echocardiographic evidence of inducible ischemia having achieved 6 minutes on a Darío protocol. Patient likely has underlying alcohol-related cirrhosis. He notes chronic abd ominal bloating and lower extremity edema. Blood pressure suboptimally controlled as an outpatient. Recommend ongoing supplementation of magnesium. Sodium slightly improved since presentation. With regards to his hypertension, recommend ongoing treatment with losartan 25 mg daily, spironolactone 25 mg daily added on 11/01/2023 for treatment of hypertension and suspected fluid retention related to his underlying liver disease. Would recommend discharge on furosemide 20 mg as well. Will need outpatient follow-up with primary care with a repeat comprehensive metabolic panel and magnesium level. Patient to establish with hepatology as an outpatient. Stress test results are reassuring with an estimated low risk of underlying hemodynamically significant coronary disease. No further cardiac testing indicated at this time. Admission and Anticipated Discharge Date Admission Date: October 31, 2023 Subjective Patient seen in cardiology follow-up. He was assessed prior to, during, and post exercise stress echocardiogram. He states he felt well yesterday. He s tates he walked 4 laps around the progressive care unit without any symptoms of chest discomfort. He notes chronic symptoms of abdominal bloating and mild lower extremity edema which are improved while he has been in the hospital and has been abstinent of alcohol. Physical Exam Constitutional: well developed and well nourished; no acute distress Eyes: PERRL; sclerae not anicteric (Yellowing of the sclera with red streaks) Neck: normal visual inspection and trachea midline Respiratory: normal respiratory effort, lungs clear to auscultation no cough Cardiovascular: Rate/Rhythm: regular rate and regular rhythm Heart Sounds: normal S1 and normal S2 Vessels: + JVD Extremities: + edema (+1 BLLE pitting edema) Gastrointestinal (Abdomen): Inspection/Auscultation: + abdomen distended Percussion/Palpation: + abdomen tender Jaundiced Musculoskeletal: Shoulder: + skin erythema (BL lower extremities ) Skin: no rashes, warm and dry Psychiatric: Orientation: alert and oriented x 3 Results & Data Vital Signs (Past 12 Hours) Vital Signs Temp Pulse Pulse Resp BP BP Pulse Ox 11/02/23 09:16 90 11/02/23 07:20 36.9 C 90 18 156/88 H 97 11/02/23 04:04 36.6 C 96 H 18 144/83 H 98 11/02/23 00:14 90 11/01/23 22:51 36.8 C 102 H 18 149/81 H 98 O2 Del Method 11/02/23 09:16 11/02/23 07:20 Room Air 11/02/23 04:04 Room Air 11/02/23 00:14 11/01/23 22:51 Room Air Laboratory Results CBC 11/02/23 Range/Units 05:46 WBC 5.38 (4.8-10.8) K/ul RBC 3.23 L (4.70-6.10) M/uL Hgb 10.8 L (14.0-18.0) g/dl Hct 32.6 L (42.0-52.0) % Plt Count 92 L (130-400) K/uL Comprehensive Metabolic Panel 11/02/23 Range/Units 05:46 Sodium 134 L (136-145) mmol/L Potassium 4.0 (3.5-5.1) mmol/L Chloride 105 (98-107) mmol/L Carbon Dioxide 23 (21-32) mmol/L BUN 8 (6-23) mg/dl Creatinine 0.51 L (0.6-1.4) mg/dl Glucose 99 (70-99(Fasting)) mg/dl Calcium 8.5 L (8.6-10.3) mg/dl Intake and Output 11/01/23 11/02/23 11/02/23 22:59 06:59 14:59 Intake Total 200 / 1456.667 100 / 1456.667 Output Total Balance 199 / 1455.667 100 / 1455.667 Intake: Oral 200 / 1275 100 / 1275 Output: # Bowel Movements Other: # Unmeasured Voids 1 Weight 90.5 kg Weight Measurement Method Built in [facility]
[2023-11-02] MEDS: MAGNESIUM SULFATE / D5W 1 GM/100 ML BAG IV SCH ×2 (10:13→11:57)
--- NOTE | 2023-11-02 12:50 | Discharge Summary ---
Date of Service November 02, 2023 Admission HPI Per Admitting Provider History obtained from patient, family, and records. Medical history significant for hypertension, hyperlipidemia, DM 2 diet- controlled, cirrhosis, chronic anemia, chronic thrombocytopenia, alcohol abuse, past tobacco abuse. Patient claims he was told told by previous [facility] PCP in 2019 that he "could stop blood pressure, cholesterol and DM meds because he did not need them after losing significant weight." Last [facility] ER visit July 2023 abdominal distention and bilateral leg swelling attributed to CHF. Patient noted to be anemic, thrombocytopenic, and hyponatremic on blood work. Cirrhosis and portal hypertension noted on abdominal imaging. Patient declined admission. [facility] PCP's office later recommended outpatient Hepatology evaluation. Patient scheduled to see specialist January 2024. Abdominal distention and leg swelling improved at home without medications as per patient. Patient experienced achy substernal pain at home yesterday while at rest going to the left arm. Some shortness of breath. Nonpruritic, no cough symptoms. May have had a transient episode last month. No headache, no unusual abdominal pain. Denies overt bleeding symptoms. Worsening discomfort few hours ago at work. Patient brought to ER by . 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 Admission Exam Per Admitting Provider GENERAL: Slightly uncomfortable, tremulous, obese, no respiratory distress SKIN: Pallor, warm HEENT: Pale palpebral conjunctivae, no ptosis, dry buccal mucosa NECK : Supple, no tenderness CHEST : CTA, no tenderness HEART : Tachycardic, no obvious murmurs ABDOMEN: Some distention, nontender RECTAL : Intact sphincter, brown stool (FOBT negative) EXTREMITIES : Minimal LE swelling, no LE tenderness, no other conspicuous deformities noted NEUROLOGIC : Coherent, no facial asymmetry, tremulous, no other gross focality Principal Diagnosis Chest pain rule out ACS Hypertension Alcohol abuse disorder Alcoholic hepatitis Discharge Exam GENERAL: NAD, room air, obese, no respiratory distress SKIN: no Pallor, warm HEENT: nl palpebral conjunctivae, no ptosis, moist buccal mucosa NECK : Supple, no tenderness CHEST : CTA, no tenderness HEART : RRR, no obvious murmurs ABDOMEN: no distention, nontender RECTAL : Intact sphincter, brown stool (FOBT negative) EXTREMITIES : Minimal LE swelling, no LE tenderness, no other conspicuous deformities noted NEUROLOGIC : Coherent, no facial asymmetry, tremulous, no other gross focality Discharge Data Allergies Allergy/AdvReac Type Severity Reaction Status Date / Time No Known Allergies Allergy Unverified 08/02/23 13:36 Consultations 10/31/23 06:10 ED Decision to Admit Stat 10/31/23 08:48 Consult Gastroenterology Routine 10/31/23 09:53 Consult Cardiology Routine Hospital Course (1) Chest pain: Plan 52-year-old male with PMH of HTN, HLD, T2DM, cirrhosis/portal hypertension, chronic anemia, chronic, cytopenia, alcohol abuse, past tobacco abuse [reports quitting 15 years ago] came in with complaint of substernal chest pain [started the evening prior to arrival] radiating to left upper extremity associated with some shortness of breath. Denies febrile illness or cough or headache or dizziness. Reports intermittent chest pain. He was managed for the following: Chest pain rule out ACS Patient presented with chest pain radiating to LUE Elevated troponin at 28, so far flat trend, trend further troponins. EKG with sinus tachycardia. No acute ST or T changes noted. Echo with EF of 60 to 65%, left ventricular wall motion is normal, LV systolic function is normal. Cardiology on board, underwent cardiac stress test, negative for inducible ischemia. Aspirin discontinued, patient started on losartan/furosemide/Aldactone for hypertension. Patient to closely follow-up with PCP and get labs done for close monitoring of his HTN and hyperlipidemia Hypertension: Patient off of old Hyzaar treatment since 2019 following previous PCP advice as per patient. Blood pressure elevated at presentation, echo with mild concentric LVH. Blood pressure management as above. Alcohol abuse disorder: Patient has been drinking for many years, reports drinking about 10-12 beers every day. Denies any withdrawal seizures in the past. RICHARD S protocol. Folic acid and thiamine. Patient counseled regarding alcohol cessation, also advised regarding inpatient rehab. Patient stated that he will think about inpatient rehab after he gets discharged. Alcoholic hepatitis: GI evaluated, f/u GI on DC. Patient to follow-up with hematology upon discharge. Electrolyte abnormalities: Monitor and replete. Other chronic medical conditions: Hyperlipidemia, off of prior Crestor treatment. LDL pending/icteric plasma hence was send-out. T2DM: Diet controlled, off of prior metformin treatment. Follow-up with PCP for long-term monitoring. Chronic hyponatremia: Possibly from cirrhosis/alcohol abuse. Sodium 132 today. Will follow. Increase solute intake in diet. 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 GI consulted, await recommendation. Bicytopenia [anemia and thrombocytopenia] and elevated INR: Likely secondary to cirrhosis. Will continue to monitor. DVT prophylaxis. Hep sc Full code Patient Ms. Candace Yates, contact #[phone]. Text document was generated using [employer] voice recognition software. It may contain grammatical or spelling errors. Kindly contact undersigned for clarification of any documentation item in question. Patient is being discharged with following instruction at the point of discharge: Follow-up with your primary care physician within a week time and likely you will need labs CBC/CMP/magnesium/phosphorus. For your hypertension, you are being started on losartan 25 mg daily, Aldactone 25 mg daily and Lasix 20 mg daily. You will need close follow-up on your renal functions towards the initial weeks of this treatment. Coordinate with your PCP office for close monitoring. Follow-up with your PCP for long-term monitoring of your hypertension and hyperlipidemia. You underwent cardiac stress test which was negative for ischemia. For your liver cirrhosis, it is highly recommended that you refrain from alcohol completely. You will need to follow-up with hepatology upon discharge. Take your medications as prescribed. Please make sure that you are able to get your medications today by calling your pharmacy before you leave the hospital so that your treatment continuity is not broken. Home Health Attestation I certify that this patient is under my care and that I, or a physicians security assistant working with me, had a face to-face encounter that meets the home health ebuk-co-fenc encounter requirements with this patient. The encounter with the patient was in whole, or in part, for the following medical condition, which is the primary reason for home health care (list medical condition): I certify that, based on my findings, the following services are medically necessary home health services: My clinical findings support the need for the above services because: Further, I certify that my clinical findings support that this patient is homebound (i.e. absences from home require considerable and taxing effort and are for medical reasons or orthodox services or infrequently or of short duration when for other reasons) because: Certification for Home Health Services: Based on the above findings, I certify that this patient is confined to the home and needs intermittent chcf care, physical therapy and/or speech therapy or continues to need occupational therapy. The patient is under my care, and I have initiated the establishment of the plan of care. This patient will be followed by a physician who will periodically review the plan of care. Total Time Total Time Spent Total Time Spent (In Minutes): 45 Discharge Plan Discharge Items Patient Disposition: Home - Self-Care Reason For Visit: CP, ETOH WITHDRAWAL Discharge Diagnosis: Chest pain rule out ACS Hypertension Alcohol abuse disorder Alcoholic hepatitis Activity: Resume your previous activity Non-emergency contact: Primary Care Provider Call non-emergency contact if: you have any medication questions, your symptoms worsen and your temperature is above 101.5 Follow-up/Referrals: Gus Huber MD [Outside Practitioners] - (Date & Time 11/09/2023 7:40 AM Provider Gus Huber MD Department Family Medicine [place] ) Rox Rosas DO [Physician] - (Date & Time 01/07/2024 2:40 PM [facility] Diet: Carb Consistent or DM2 and Heart Healthy Addtl Attending Provider Instructions: Follow-up with your primary care physician within a week time and likely you will need labs CBC/CMP/magnesium/phosphorus. For your hypertension, you are being started on losartan 25 mg daily, Aldactone 25 mg daily and Lasix 20 mg daily. You will need close follow-up on your renal functions towards the initial weeks of this treatment. Coordinate with your PCP office for close monitoring. Follow-up with your PCP for long-term monitoring of your hypertension and hyperlipidemia. You underwent cardiac stress test which was negative for ischemia. For your liver cirrhosis, it is highly recommended that you refrain from alcohol completely. You will need to follow-up with hepatology upon discharge. Take your medications as prescribed. Please make sure that you are able to get your medications today by calling your pharmacy before you leave the hospital so that your treatment continuity is not broken. Pending Studies at Discharge: No Stand-Alone Forms: [employer], Smoking Cessation Medications and DC Order Prescriptions: New spironolactone 25 mg Tablet 25 mg PO QAM Qty: 30 0RF losartan 25 mg tablet 25 mg PO DAILY Qty: 30 0RF gabapentin 600 mg Tablet 600 mg PO Q12H Qty: 3 0RF furosemide 20 mg Tablet 20 mg PO QAM Qty: 30 0RF magnesium oxide 400 mg (241.3 mg magnesium) Tablet 400 mg PO QAM Qty: 30 0RF folic acid 1 mg Tablet 1 mg PO QAM Qty: 30 0RF multivitamin with folic acid [Daily-Melida (with folic acid)] 400 mcg Tablet 1 tab PO QAM Qty: 30 0RF thiamine HCl (vitamin B1) 100 mg Tablet 100 mg PO QAM Qty: 30 0RF No Action No Known Home Medications Discharge Orders: Discharge Order (Routine); Ordered 11/02/23 Ordered By: Jorge Jones Admission Data Admit Date/Time: 10/31/23 07:29 Attending Provider: Jorge Jones Admit Provider: Tadeo Hernandez Primary Care Provider: PCP,NO Other Providers: Tadeo Hernandez; Ethan Urbano; Ernst Espinal; Mariella Ulrich; Ros Chamorro; Kristen Castro; Dawn Chávez; Rufino Kaufman; Regulo Cisse; Orin De; Nenita Sharma; Dhaval Coe S; Renee Azar; Veronica Knight; Keeley Khan.; Aileen Hernandez; Adrián Chavez; Sd Ireladn; Gino Marroquin; Rox Rosas; Marcell Cowan Jr; Rox Banuelos; Oc Ramesh; Vitaly Sexton; Sundeep Mathis; Francis Yeung; Alberto Obrien; Tamiko Shafer; Nadia Burgess; Rox Anand; Deep Quinn; Rojelio De La Cruz; Pratibha Sainz; Adriana Vincent; Yulia Samaniego; Mitul Solis
[2023-11-03] MEDS ORDERED: GABAPENTIN 600 MG TAB PO SCH (19:45)
== END 2023-11-02 14:17 | disposition home or self-care (01) | DRG 313 ==
LOC: ED 03:37 → EDINP 07:29 → 2S 07:57